=== PATIENT | male | born 1980 | race Two or more races ===

== ENCOUNTER 2023-11-23 01:30 | Emergency (ER) | payer MEDICAID, OTHER ==
[~2023-11-23] VITALS: Ht 172.7 cm; Wt 89.7 kg
[2023-11-23] MEDS ORDERED: NEOM-48 EX (02:13)
[2023-11-23 04:18] VITALS: BP 141/88; PULSE 84; RESP 16; TEMP 98.8; O2SAT 97
== END 2023-11-23 04:20 | disposition home or self-care (01) ==
LOC: ER 01:30
DX: L91.9 Hypertrophic disorder of the skin, unspecified (principal)